=== PATIENT | male | born 1975 | race Two or more races ===

== ENCOUNTER 2024-01-30 22:42 | Emergency (ER) | payer OTHER ==
[~2024-01-30] VITALS: Ht 167.6 cm; Wt 81.6 kg
[2024-01-30 23:41] VITALS: PULSE 92; RESP 18; TEMP 97.9; O2SAT 98
[2024-01-30] MEDS ORDERED: INDOMETHACIN50 MG PO (23:48)
== END 2024-01-30 23:58 | disposition home or self-care (01) ==
LOC: ER 22:47
DX: M25.561 Pain in right knee (principal); M10.9 Gout, unspecified
CPT/HCPCS: 99282